=== PATIENT | male | born 1975 | race Caucasian/White ===

== ENCOUNTER 2022-04-04 07:00 | Emergency (ER) | payer OTHER ==
[~2022-04-04] VITALS: Ht 177.8 cm; Wt 100.7 kg
== END 2022-04-04 11:45 | disposition home or self-care (01) ==
LOC: ER 07:00
DX: H92.01 Otalgia, right ear (principal); I10 Essential (primary) hypertension; E03.9 Hypothyroidism, unspecified; Z88.6 Allergy status to analgesic agent; Z88.8 Allergy status to other drugs, medicaments and biological substances

== ENCOUNTER → 2024-11-26 | Emergency (ER) | payer OTHER ==
[~2024-11-26] VITALS: Ht 177.8 cm; Wt 90.7 kg
== END | disposition left against medical advice (07) ==
LOC: ER 08:30
DX: Z53.21 Procedure and treatment not carried out due to patient leaving prior to being seen by health care provider (principal)